=== PATIENT | female | born 1995 | race Two or more races ===

== ENCOUNTER 2018-09-28 20:17 | Emergency (ER) | payer OTHER ==
[~2018-09-28] VITALS: Ht 154.9 cm; Wt 78.0 kg
[2018-09-29] MEDS ORDERED: KETOROLAC 15MG/ML VIAL IV ONE (02:00)
[2018-09-29 02:28] VITALS: BP 115/81
== END 2018-09-29 02:30 | disposition home or self-care (01) ==
LOC: ER 20:17
DX: R07.89 Other chest pain (principal); F12.10 Cannabis abuse, uncomplicated; Z90.49 Acquired absence of other specified parts of digestive tract
CPT/HCPCS: 81025; 93005; 96374; 99283; J1885